=== PATIENT | male | born 1960 | race African-American/Black ===

== ENCOUNTER 2022-02-07 10:54 | Emergency (ER) | payer MEDICAID ==
[~2022-02-07] VITALS: Ht 172.7 cm; Wt 73.0 kg
[~2022-02-07 10:54] MED LIST: AMLO5TAB88 PO; ASPI-1406 PO; ATOR10TA PO; CLOP75TA15 PO; LISI20TA31 PO
[2022-02-07 11:16] VITALS: BP 137/78
[2022-02-07 12:14] LABS: CHLORIDE 98 mEq/L (98-107)
[2022-02-07 12:18] LABS: HEMATOCRIT. 36.3 % (42.0-52.0); HEMOGLOBIN. 11.8 g/dL (14.0-18.0); MEAN CORPUSCULAR HEMOGLOBIN 26.4 pg (28.0-32.0); MEAN CORPUSCULAR VOLUME 81.5 fL (80.0-94.0); MEAN PLATELET VOLUME 8.8 fl (7.4-10.4); PLATELET 199 x1000/uL (130-400); RED BLOOD CELL COUNT 4.45 mill/uL (4.7-6.1); RED CELL DISTRIBUTION WIDTH 17.6 % (11.6-14.6)
[2022-02-07 12:45] LABS: PLATELET ESTIMATE NORMAL
== END 2022-02-07 13:16 | disposition home or self-care (01) ==
LOC: ER 11:10
DX: R07.89 Other chest pain (principal); I10 Essential (primary) hypertension; E78.00 Pure hypercholesterolemia, unspecified; F41.9 Anxiety disorder, unspecified; J44.9 Chronic obstructive pulmonary disease, unspecified; Z86.73 Personal history of transient ischemic attack (TIA), and cerebral infarction without residual deficits; F17.210 Nicotine dependence, cigarettes, uncomplicated; Z71.6 Tobacco abuse counseling
CPT/HCPCS: 36415; 71045; 80053; 83880; 84484; 85025; 93005; 99285; 99406

== ENCOUNTER 2024-09-17 12:44 | Inpatient (IN) | payer MEDICAID ==
[~2024-09-17] VITALS: Ht 182.9 cm; Wt 63.1 kg
[2024-09-17 13:55] LABS: HEMATOCRIT. 21.5 % (42.0-52.0); MEAN CORPUSCULAR HEMOGLOBIN 18.9 pg (28.0-32.0); MEAN CORPUSCULAR HGB CONC 29.1 g/dL (31.0-37.0); MEAN CORPUSCULAR VOLUME 64.9 fL (80.0-94.0); MEAN PLATELET VOLUME 8.3 fl (7.4-10.4); PLATELET 128 x1000/uL (130-400); RED BLOOD CELL COUNT 3.32 mill/uL (4.7-6.1); RED CELL DISTRIBUTION WIDTH 23.1 % (11.6-14.6); WHITE BLOOD COUNT 2.1 x1000/uL (4.5-11.0)
[2024-09-17 14:01] LABS: HEMOGLOBIN. 6.3 g/dL (14.0-18.0)
[2024-09-17 14:02] LABS: DIFFERENTIAL COMMENT 1
[2024-09-17 14:11] LABS: CALCIUM 8.8 mg/dL (8.7-10.4); CARBON DIOXIDE 25 mEq/L (21-32); CHLORIDE 107 mEq/L (98-107); INR 1.1; POTASSIUM 3.6 mEq/L (3.5-5.1); PROTHROMBIN TIME 11.9 sec (9.6-11.0); SODIUM 138 mEq/L (136-145)
[2024-09-17 14:17] LABS: CREATININE 0.7 mg/dL (0.6-1.3); GLUCOSE 102 mg/dL (70-105); UREA NITROGEN BLOOD 6 mg/dL (9-23)
[2024-09-17 14:21] LABS: ETHANOL BLOOD < 10 mg/dL (<10)
[2024-09-17] MEDS ORDERED: MAGNESIUM/ALUMINUM HYDROXIDE/SIMETHICONE 30ML UDC PO PRN (14:30)
[2024-09-17] MEDS ORDERED: ONDANSETRON HCL 4MG/2ML INJ IV PRN (14:30)
[2024-09-17] MEDS ORDERED: CLONIDINE 0.1MG TABLET PO PRN (14:30)
[2024-09-17] MEDS ORDERED: DOCUSATE SODIUM 100MG CAPSULE PO PRN (14:30)
[2024-09-17] MEDS ORDERED: GUAIFENESIN 200MG/10ML SUGAR FREE UDC PO PRN (14:30)
[2024-09-17] MEDS ORDERED: NITROGLYCERIN 0.4MG TABLET SL SL PRN (14:30)
[2024-09-17] MEDS ORDERED: ACETAMINOPHEN 325MG TABLET PO PRN (14:30)
[2024-09-17] MEDS ORDERED: IPRATROPIUM/ALBUTEROL 0.5-3(2.5)MG/3ML NEB NEB PRN (14:30)
[2024-09-17] MEDS: DEXT 5%/LACTATED RINGERS 1,000 ML IV SCH (15:02)
[2024-09-17] MEDS ORDERED: PANTOPRAZOLE 80 MG in SODIUM CHLORIDE 0.9% 100 ML IV SCH (15:15)
[2024-09-17 15:16] LABS: IRON 22 ug/dL (65-175)
[2024-09-17 15:17] LABS: LDL CHOLESTEROL 34 mg/dL (5-100); TRIGLYCERIDE 52 mg/dL (0-150)
[2024-09-17 15:18] LABS: ALANINE AMINOTRANSFERASE 12 IU/L (10-49); ALBUMIN 3.5 g/dL (3.2-4.8); ASPARTATE AMINOTRANSFERASE 28 IU/L (<34); BILIRUBIN DIRECT 0.4 mg/dL (<=3.0); CHOLESTEROL 80 mg/dL (<200); HDL CHOLESTEROL 40 mg/dL (>55)
[2024-09-17 15:19] LABS: BILIRUBIN TOTAL 0.8 mg/dL (0.1-1.0); PROTEIN TOTAL 6.2 g/dL (6.0-8.3); TOTAL IRON BINDING CAPACITY 393 ug/dl (250-425)
[2024-09-17 15:20] LABS: FOLIC ACID (FOLATE) SERUM 12.71 ng/mL (>5.38); VITAMIN B12 SERUM 519 pg/mL (211-911)
[2024-09-17 15:21] LABS: T4 FREE 0.86 ng/dL (0.89-1.76); THYROID STIMULATING HORMONE 1.25 uIU/mL (0.55-4.78)
[2024-09-17 15:21] LABS: CLARITY URINE CLEAR (CLEAR); COLOR URINE YELLOW (YELLOW); GLUCOSE URINE NEGATIVE (NEGATIVE); KETONES URINE NEGATIVE (NEGATIVE); LEUKOCYTE ESTERASE URINE NEGATIVE (NEGATIVE); NITRITE URINE NEGATIVE (NEGATIVE); OCCULT BLOOD URINE NEGATIVE (NEGATIVE); PROTEIN URINE NEGATIVE (NEGATIVE); SPECIFIC GRAVITY URINE 1.038 (1.005-1.030)
[2024-09-17 15:40] LABS: HYPOCHROMASIA 3+; MICROCYTOSIS 3+; PLATELET ESTIMATE SLIGHTLY DECREASED
[2024-09-17 15:41] LABS: ANISOCYTOSIS 2+
[2024-09-17 15:42] LABS: GIANT PLATELETS 1+; TEAR DROP CELLS 1+
[2024-09-17 15:43] LABS: OVALOCYTES 1+
[2024-09-17 15:44] LABS: *AMPHETAMINES SCREEN URINE NEGATIVE (NEGATIVE)
[2024-09-17 15:45] LABS: *BARBITURATES SCREEN URINE NEGATIVE (NEGATIVE); *BENZODIAZEPINES SCREEN URINE NEGATIVE (NEGATIVE); *COCAINE SCREEN URINE NEGATIVE (NEGATIVE)
[2024-09-17 15:46] LABS: CANNABINOID URINE SCREEN NEGATIVE (NEGATIVE); ECSTASY MDMA SCREEN URINE NEGATIVE (NEGATIVE); METHADONE URINE SCREEN NEGATIVE (NEGATIVE); OPIATES URINE SCREEN NEGATIVE (NEGATIVE); PHENCYCLIDINE URINE SCREEN NEGATIVE (NEGATIVE)
[2024-09-17] MEDS: PANTOPRAZOLE 80 MG in SODIUM CHLORIDE 0.9% 100 ML IV SCH (15:59)
[2024-09-17] MEDS: FERROUS SULFATE 325MG TABLET PO SCH (17:28)
[2024-09-17] MEDS ORDERED: ZOLPIDEM TARTRATE 5MG TABLET PO PRN (21:00)
[2024-09-17] MEDS: ASCORBIC ACID 500 MG TABLET PO SCH (22:20)
[2024-09-18 05:18] LABS: CHLORIDE 107 mEq/L (98-107); POTASSIUM 3.4 mEq/L (3.5-5.1); SODIUM 139 mEq/L (136-145)
[2024-09-18 05:20] LABS: CARBON DIOXIDE 26 mEq/L (21-32)
[2024-09-18 05:21] LABS: CALCIUM 8.9 mg/dL (8.7-10.4)
[2024-09-18 05:25] LABS: CREATININE 0.6 mg/dL (0.6-1.3)
[2024-09-18 05:26] LABS: GLUCOSE 115 mg/dL (70-105); UREA NITROGEN BLOOD 5 mg/dL (9-23)
[2024-09-18 05:27] LABS: ALANINE AMINOTRANSFERASE 14 IU/L (10-49); ALBUMIN 3.5 g/dL (3.2-4.8); ASPARTATE AMINOTRANSFERASE 27 IU/L (<34)
[2024-09-18 05:28] LABS: BILIRUBIN TOTAL 3.4 mg/dL (0.1-1.0); HEMATOCRIT. 28.6 % (42.0-52.0); HEMOGLOBIN. 8.6 g/dL (14.0-18.0); MEAN CORPUSCULAR HEMOGLOBIN 21.1 pg (28.0-32.0); MEAN CORPUSCULAR HGB CONC 30.2 g/dL (31.0-37.0); MEAN CORPUSCULAR VOLUME 69.9 fL (80.0-94.0); PROTEIN TOTAL 6.5 g/dL (6.0-8.3); RED BLOOD CELL COUNT 4.09 mill/uL (4.7-6.1); RED CELL DISTRIBUTION WIDTH 24.5 % (11.6-14.6); WHITE BLOOD COUNT 5.3 x1000/uL (4.5-11.0)
[2024-09-18 07:04] LABS: DIFFERENTIAL COMMENT 1
[2024-09-18 08:46] LABS: ANISOCYTOSIS 3+; MICROCYTOSIS 2+
[2024-09-18 14:00] VITALS: BP 159/81; PULSE 65; RESP 17; TEMP 36.3068
[2024-09-18 16:00] VITALS: BP 150/71; PULSE 61; RESP 16; TEMP 35.78064; O2SAT 100
[2024-09-18] MEDS: ACETAMINOPHEN 325MG TABLET PO PRN (17:17)
[2024-09-18 20:00] VITALS: BP 115/73; PULSE 66; RESP 18; TEMP 36.16956; O2SAT 100
[2024-09-19] VITALS: BP 128/81; PULSE 71; RESP 18; TEMP 36.28068; O2SAT 95
[2024-09-19 04:00] VITALS: BP 149/78; PULSE 68; RESP 18; TEMP 36.22512; O2SAT 94
[2024-09-19 08:00] VITALS: BP 159/81; PULSE 75; RESP 18; TEMP 36.3918; O2SAT 99
[2024-09-19 12:00] VITALS: BP 131/62; PULSE 72; RESP 18; TEMP 35.94732; O2SAT 98
[2024-09-19 13:17] LABS: CHLORIDE 109 mEq/L (98-107); POTASSIUM 3.3 mEq/L (3.5-5.1); SODIUM 140 mEq/L (136-145)
[2024-09-19 13:18] LABS: CARBON DIOXIDE 28 mEq/L (21-32)
[2024-09-19 13:19] LABS: CALCIUM 9.2 mg/dL (8.7-10.4)
[2024-09-19 13:23] LABS: CREATININE 0.7 mg/dL (0.6-1.3); GLUCOSE 127 mg/dL (70-105)
[2024-09-19 13:24] LABS: UREA NITROGEN BLOOD 5 mg/dL (9-23)
[2024-09-19 13:25] LABS: ALANINE AMINOTRANSFERASE 12 IU/L (10-49); ASPARTATE AMINOTRANSFERASE 34 IU/L (<34)
[2024-09-19 13:26] LABS: BILIRUBIN TOTAL 1.8 mg/dL (0.1-1.0); PROTEIN TOTAL 7.1 g/dL (6.0-8.3)
[2024-09-19] MEDS: PANTOPRAZOLE SODIUM 40 MG/VIAL IV SCH (13:27)
[2024-09-19 13:44] LABS: HEMATOCRIT. 32.1 % (42.0-52.0); HEMOGLOBIN. 9.4 g/dL (14.0-18.0); MEAN CORPUSCULAR HEMOGLOBIN 20.3 pg (28.0-32.0); MEAN CORPUSCULAR HGB CONC 29.3 g/dL (31.0-37.0); MEAN CORPUSCULAR VOLUME 69.3 fL (80.0-94.0); RED BLOOD CELL COUNT 4.63 mill/uL (4.7-6.1); RED CELL DISTRIBUTION WIDTH 25.2 % (11.6-14.6)
[2024-09-19 14:22] LABS: DIFFERENTIAL COMMENT 1
[2024-09-19 16:00] VITALS: BP 134/75; PULSE 77; RESP 18; TEMP 36.44736; O2SAT 99
[2024-09-19 18:01] LABS: PLATELET 85 x1000/uL (130-400)
[2024-09-19 18:03] LABS: ANISOCYTOSIS 3+; HYPOCHROMASIA 2+; MICROCYTOSIS 3+; PLATELET ESTIMATE DECREASED
[2024-09-19 20:00] VITALS: BP 125/71; PULSE 70; RESP 19; TEMP 36.72516; O2SAT 100
[2024-09-19] MEDS: ATORVASTATIN CALCIUM 40MG TABLET PO SCH (20:21)
[2024-09-19] MEDS: KCL 20MEQ/100ML PREMIX 100 ML IV NR (20:59)
[2024-09-19] MEDS ORDERED: IOHEXOL-300 100 ML BOTTLE ONE (22:48)
[2024-09-20] VITALS: BP 120/75; PULSE 70; RESP 19; TEMP 36.61404; O2SAT 100
[2024-09-20 04:00] VITALS: BP 145/65; PULSE 69; RESP 19; TEMP 36.3918; O2SAT 100
[2024-09-20 08:00] VITALS: BP 119/69; PULSE 72; RESP 19; TEMP 36.28068; O2SAT 97
[2024-09-20 08:11] LABS: BASOPHILS % 1.5 % (0.0-2.0); EOSINOPHILS % 5.2 % (0.0-5.0); HEMATOCRIT. 30.8 % (42.0-52.0); HEMOGLOBIN. 9.4 g/dL (14.0-18.0); LYMPHOCYTES % 34.6 % (20.0-50.0); MEAN CORPUSCULAR HEMOGLOBIN 21.2 pg (28.0-32.0); MEAN CORPUSCULAR HGB CONC 30.4 g/dL (31.0-37.0); MEAN CORPUSCULAR VOLUME 69.8 fL (80.0-94.0); MONOCYTES % 14.7 % (2.0-8.0); RED BLOOD CELL COUNT 4.41 mill/uL (4.7-6.1); RED CELL DISTRIBUTION WIDTH 25.9 % (11.6-14.6); WHITE BLOOD COUNT 5.1 x1000/uL (4.5-11.0)
[2024-09-20 08:13] LABS: CARBON DIOXIDE 29 mEq/L (21-32); CHLORIDE 104 mEq/L (98-107); POTASSIUM 3.1 mEq/L (3.5-5.1); SODIUM 138 mEq/L (136-145)
[2024-09-20 08:14] LABS: CALCIUM 8.9 mg/dL (8.7-10.4)
[2024-09-20 08:18] LABS: CREATININE 0.6 mg/dL (0.6-1.3); GLUCOSE 108 mg/dL (70-105)
[2024-09-20 08:20] LABS: ALANINE AMINOTRANSFERASE 18 IU/L (10-49); ALBUMIN 3.5 g/dL (3.2-4.8); ASPARTATE AMINOTRANSFERASE 34 IU/L (<34)
[2024-09-20 08:21] LABS: BILIRUBIN TOTAL 1.5 mg/dL (0.1-1.0); PROTEIN TOTAL 6.6 g/dL (6.0-8.3)
[2024-09-20 08:26] LABS: DIFFERENTIAL COMMENT 1
[2024-09-20 08:28] LABS: ADD RBC MORPHOLOGY NO
[2024-09-20 08:35] LABS: UREA NITROGEN BLOOD < 5 mg/dL (9-23)
[2024-09-20] MEDS: ASPIRIN 81MG TABLET PO SCH (10:45)
[2024-09-20] MEDS: CLOPIDOGREL 75MG TABLET PO SCH (10:45)
[2024-09-20 12:00] VITALS: BP 148/75; PULSE 67; RESP 18; TEMP 36.33624; O2SAT 100
[2024-09-20] MEDS: KCL 20MEQ/100ML PREMIX 100 ML IV NR (12:18)
[2024-09-20 16:00] VITALS: BP 110/74; PULSE 77; RESP 19; TEMP 36.44736; O2SAT 97
[2024-09-20 20:00] VITALS: BP 125/74; PULSE 76; RESP 18; TEMP 36.28068; O2SAT 99
[2024-09-20] MEDS: SENNOSIDES 8.6MG TABLET PO SCH (21:00)
[2024-09-20] MEDS: DOCUSATE SODIUM 100MG CAPSULE PO SCH (21:56)
[2024-09-20] MEDS ORDERED: IOHEXOL-300 100 ML BOTTLE ONE (23:35)
[2024-09-21] VITALS: BP 144/76; PULSE 63; RESP 18; TEMP 36.50292; O2SAT 97
[2024-09-21 04:00] VITALS: BP 142/85; PULSE 69; RESP 20; TEMP 36.00288; O2SAT 100
[2024-09-21 08:00] VITALS: BP 151/81; PULSE 66; RESP 18; TEMP 36.114; O2SAT 99
[2024-09-21 12:00] VITALS: BP 146/80; PULSE 75; RESP 18; TEMP 36.00288; O2SAT 99
[2024-09-21 15:58] LABS: HEMATOCRIT. 32.2 % (42.0-52.0); HEMOGLOBIN. 9.7 g/dL (14.0-18.0); MEAN CORPUSCULAR HEMOGLOBIN 21.8 pg (28.0-32.0); MEAN CORPUSCULAR HGB CONC 30.1 g/dL (31.0-37.0); MEAN CORPUSCULAR VOLUME 72.6 fL (80.0-94.0); RED BLOOD CELL COUNT 4.44 mill/uL (4.7-6.1); RED CELL DISTRIBUTION WIDTH 25.4 % (11.6-14.6); WHITE BLOOD COUNT 5.7 x1000/uL (4.5-11.0)
[2024-09-21 16:00] VITALS: BP 143/69; PULSE 75; RESP 18; TEMP 35.8362; O2SAT 99
[2024-09-21 16:00] LABS: DIFFERENTIAL COMMENT 1
[2024-09-21 16:10] LABS: CARBON DIOXIDE 28 mEq/L (21-32); CHLORIDE 105 mEq/L (98-107); POTASSIUM 3.6 mEq/L (3.5-5.1); SODIUM 137 mEq/L (136-145)
[2024-09-21 16:11] LABS: CALCIUM 9.3 mg/dL (8.7-10.4)
[2024-09-21 16:16] LABS: CREATININE 0.7 mg/dL (0.6-1.3); GLUCOSE 138 mg/dL (70-105)
[2024-09-21 16:22] LABS: UREA NITROGEN BLOOD < 5 mg/dL (9-23)
[2024-09-21 17:04] LABS: MEAN PLATELET VOLUME 8.9 fl (7.4-10.4); PLATELET 65 x1000/uL (130-400)
[2024-09-21 17:06] LABS: ANISOCYTOSIS 2+; HYPOCHROMASIA 2+; MICROCYTOSIS 2+; NUCLEATED RED BLOOD CELLS 1 /100 WBC; PLATELET ESTIMATE DECREASED
[2024-09-21 20:00] VITALS: BP 144/62; RESP 18; TEMP 36.44736; O2SAT 99
[2024-09-22] VITALS: BP 144/62; RESP 18; TEMP 36.44736; O2SAT 99
[2024-09-22 04:00] VITALS: BP 136/68; RESP 18; TEMP 36.22512; O2SAT 99
[2024-09-22 08:00] VITALS: BP 161/87; PULSE 84; RESP 18; TEMP 36.72516; O2SAT 98
[2024-09-22 12:00] VITALS: BP 118/58; PULSE 124; RESP 19; TEMP 36.55848; O2SAT 98
[2024-09-22 16:00] VITALS: BP 133/71; PULSE 91; RESP 18; TEMP 36.50292; O2SAT 98
[2024-09-22 19:15] LABS: HEMATOCRIT. 30.8 % (42.0-52.0); HEMOGLOBIN. 9.1 g/dL (14.0-18.0); MEAN CORPUSCULAR HEMOGLOBIN 21.4 pg (28.0-32.0); MEAN CORPUSCULAR HGB CONC 29.5 g/dL (31.0-37.0); MEAN CORPUSCULAR VOLUME 72.6 fL (80.0-94.0); RED BLOOD CELL COUNT 4.25 mill/uL (4.7-6.1); RED CELL DISTRIBUTION WIDTH 26.3 % (11.6-14.6); WHITE BLOOD COUNT 8.6 x1000/uL (4.5-11.0)
[2024-09-22 19:18] LABS: CHLORIDE 104 mEq/L (98-107); POTASSIUM 3.7 mEq/L (3.5-5.1); SODIUM 137 mEq/L (136-145)
[2024-09-22 19:19] LABS: CARBON DIOXIDE 28 mEq/L (21-32)
[2024-09-22 19:21] LABS: DIFFERENTIAL COMMENT 1
[2024-09-22 19:24] LABS: CREATININE 0.7 mg/dL (0.6-1.3); GLUCOSE 134 mg/dL (70-105); UREA NITROGEN BLOOD 7 mg/dL (9-23)
[2024-09-22 20:00] VITALS: BP 137/72; PULSE 81; RESP 20; TEMP 36.61404; O2SAT 98
[2024-09-22 22:30] LABS: HYPOCHROMASIA 2+; MICROCYTOSIS 2+; PLATELET ESTIMATE DECREASED
[2024-09-22 22:31] LABS: MEAN PLATELET VOLUME 9.3 fl (7.4-10.4); OVALOCYTES 1+; PLATELET 53 x1000/uL (130-400)
[2024-09-22 22:32] LABS: ANISOCYTOSIS 2+
[2024-09-23] VITALS: BP 151/84; PULSE 89; RESP 20; TEMP 36.78072; O2SAT 100
[2024-09-23 04:00] VITALS: BP 137/80; PULSE 85; RESP 20; TEMP 36.44736; O2SAT 100
[2024-09-23 08:00] VITALS: BP 136/65; PULSE 77; RESP 18; TEMP 36.61404; O2SAT 99
[2024-09-23 11:06] LABS: HEMATOCRIT. 30.5 % (42.0-52.0); HEMOGLOBIN. 9.4 g/dL (14.0-18.0); MEAN CORPUSCULAR HEMOGLOBIN 22.6 pg (28.0-32.0); MEAN CORPUSCULAR HGB CONC 30.7 g/dL (31.0-37.0); MEAN CORPUSCULAR VOLUME 73.5 fL (80.0-94.0); RED BLOOD CELL COUNT 4.15 mill/uL (4.7-6.1); RED CELL DISTRIBUTION WIDTH 26.3 % (11.6-14.6); WHITE BLOOD COUNT 6.3 x1000/uL (4.5-11.0)
[2024-09-23 11:07] LABS: CHLORIDE 104 mEq/L (98-107); POTASSIUM 3.2 mEq/L (3.5-5.1); SODIUM 138 mEq/L (136-145)
[2024-09-23 11:08] LABS: CALCIUM 9.3 mg/dL (8.7-10.4); CARBON DIOXIDE 29 mEq/L (21-32)
[2024-09-23 11:13] LABS: CREATININE 0.7 mg/dL (0.6-1.3); GLUCOSE 155 mg/dL (70-105); UREA NITROGEN BLOOD 7 mg/dL (9-23)
[2024-09-23 11:20] LABS: DIFFERENTIAL COMMENT 1
[2024-09-23 12:00] VITALS: BP 113/54; PULSE 76; RESP 17; TEMP 36.61404; O2SAT 98
[2024-09-23 13:53] LABS: ANISOCYTOSIS 4+; MICROCYTOSIS 2+
[2024-09-23 13:55] LABS: PLATELET ESTIMATE MARKEDLY DECREASED
[2024-09-23 13:57] LABS: MEAN PLATELET VOLUME 9.2 fl (7.4-10.4)
[2024-09-23 13:59] LABS: PLATELET 48 x1000/uL (130-400)
[2024-09-23 16:00] VITALS: BP 130/70; PULSE 75; RESP 18; TEMP 36.50292; O2SAT 98
[2024-09-23 20:00] VITALS: BP 156/87; PULSE 97; RESP 18; TEMP 36.55848; O2SAT 18
[2024-09-24] VITALS: BP 142/80; PULSE 85; RESP 18; TEMP 36.61404; O2SAT 98
[2024-09-24 04:00] VITALS: BP 135/82; PULSE 79; RESP 18; TEMP 36.44736; O2SAT 98
[2024-09-24 06:19] LABS: CARBON DIOXIDE 27 mEq/L (21-32); CHLORIDE 103 mEq/L (98-107); POTASSIUM 3.6 mEq/L (3.5-5.1); SODIUM 136 mEq/L (136-145)
[2024-09-24 06:20] LABS: CALCIUM 9.1 mg/dL (8.7-10.4)
[2024-09-24 06:25] LABS: CREATININE 0.6 mg/dL (0.6-1.3); GLUCOSE 108 mg/dL (70-105); UREA NITROGEN BLOOD 6 mg/dL (9-23)
[2024-09-24 06:58] LABS: HEMATOCRIT. 29.5 % (42.0-52.0); HEMOGLOBIN. 9.2 g/dL (14.0-18.0); MEAN CORPUSCULAR HGB CONC 31.2 g/dL (31.0-37.0); MEAN CORPUSCULAR VOLUME 73.9 fL (80.0-94.0); RED CELL DISTRIBUTION WIDTH 26.3 % (11.6-14.6); WHITE BLOOD COUNT 9.4 x1000/uL (4.5-11.0)
[2024-09-24 07:02] LABS: DIFFERENTIAL COMMENT 1
[2024-09-24 08:00] VITALS: BP 137/70; PULSE 70; RESP 17; TEMP 36.61404; O2SAT 99
[2024-09-24 10:15] LABS: ANISOCYTOSIS 4+; MICROCYTOSIS 2+; OVALOCYTES 1+; PLATELET ESTIMATE DECREASED
[2024-09-24 10:21] LABS: PLATELET 51 x1000/uL (130-400)
[2024-09-24 12:00] VITALS: BP 128/68; PULSE 79; RESP 17; TEMP 36.61404; O2SAT 99
[2024-09-24] MEDS: FOLIC ACID 1MG TABLET PO SCH (12:13)
[2024-09-24] MEDS: MULTIVITAMINS,THER W-MINERALS TABLET PO SCH (12:41)
[2024-09-24] MEDS: THIAMINE HCL 100MG TABLET PO SCH (12:49)
[2024-09-24 16:00] VITALS: BP 125/59; PULSE 70; RESP 17; TEMP 36.50292; O2SAT 99
[2024-09-24 20:00] VITALS: BP 129/75; PULSE 65; RESP 18; TEMP 36.9474; O2SAT 100
[2024-09-25] VITALS: BP 146/76; PULSE 70; RESP 18; TEMP 36.61404; O2SAT 100
[2024-09-25 04:00] VITALS: BP 145/71; PULSE 76; RESP 18; TEMP 36.50292; O2SAT 100
[2024-09-25 06:36] LABS: CARBON DIOXIDE 26 mEq/L (21-32); CHLORIDE 104 mEq/L (98-107); POTASSIUM 4.7 mEq/L (3.5-5.1); SODIUM 136 mEq/L (136-145)
[2024-09-25 06:37] LABS: CALCIUM 9.4 mg/dL (8.7-10.4)
[2024-09-25 06:41] LABS: CREATININE 0.6 mg/dL (0.6-1.3)
[2024-09-25 06:42] LABS: GLUCOSE 97 mg/dL (70-105); UREA NITROGEN BLOOD 6 mg/dL (9-23)
[2024-09-25 08:00] VITALS: BP 138/62; PULSE 77; RESP 16; TEMP 36.44736; O2SAT 100
[2024-09-25 12:00] VITALS: BP 132/60; PULSE 78; RESP 18; TEMP 36.114; O2SAT 100
[2024-09-25 16:00] VITALS: BP 130/62; PULSE 77; RESP 16; TEMP 36.22512; O2SAT 100
[2024-09-25 16:02] LABS: HEMATOCRIT. 30.6 % (42.0-52.0); HEMOGLOBIN. 9.4 g/dL (14.0-18.0); MEAN CORPUSCULAR HEMOGLOBIN 23.4 pg (28.0-32.0); MEAN CORPUSCULAR HGB CONC 30.9 g/dL (31.0-37.0); MEAN CORPUSCULAR VOLUME 75.8 fL (80.0-94.0); MEAN PLATELET VOLUME 9.5 fl (7.4-10.4); PLATELET 70 x1000/uL (130-400); RED BLOOD CELL COUNT 4.04 mill/uL (4.7-6.1); WHITE BLOOD COUNT 6.3 x1000/uL (4.5-11.0)
[2024-09-25 16:22] LABS: ADD RBC MORPHOLOGY YES; DIFFERENTIAL COMMENT 1
[2024-09-25 19:32] LABS: ANISOCYTOSIS 3+; PLATELET ESTIMATE DECREASED
[2024-09-25 19:33] LABS: HYPOCHROMASIA 1+; MICROCYTOSIS 2+; OVALOCYTES 1+; TEAR DROP CELLS 1+
[2024-09-25 20:00] VITALS: BP 130/65; PULSE 74; RESP 18; TEMP 36.78072; O2SAT 100
[2024-09-26] VITALS: BP 155/74; PULSE 75; RESP 19; TEMP 37.11408; O2SAT 100
[2024-09-26 04:00] VITALS: BP 132/68; PULSE 75; RESP 18; TEMP 36.72516; O2SAT 100
[2024-09-26 08:00] VITALS: BP 128/62; PULSE 78; RESP 16; TEMP 36.61404; O2SAT 100
[2024-09-26 12:00] VITALS: BP 130/60; PULSE 77; RESP 18; TEMP 36.44736; O2SAT 100
[2024-09-26 16:00] VITALS: BP 138/66; PULSE 80; RESP 16; TEMP 36.55848; O2SAT 98
[2024-09-26 18:04] VITALS: BP 128/66; PULSE 78; TEMP 96.9; O2SAT 98
== END 2024-09-26 19:30 | DRG 45 ==
LOC: ER 12:53 → EDBEDREQ 13:58 → 5WST 21:51 → 7EST 09-18 13:20
PROVIDERS: ADMIT Internal Medicine; ATTEND Internal Medicine
PROC: 30233N1 Transfusion of Nonautologous Red Blood Cells into Peripheral Vein, Percutaneous Approach (ICD-10-PCS; principal; 2024-09-17)
DX: I63.81 Other cerebral infarction due to occlusion or stenosis of small artery (principal); J96.01 Acute respiratory failure with hypoxia; D61.818 Other pancytopenia; D62 Acute posthemorrhagic anemia; D49.1 Neoplasm of unspecified behavior of respiratory system; J44.1 Chronic obstructive pulmonary disease with (acute) exacerbation; D50.9 Iron deficiency anemia, unspecified; E80.6 Other disorders of bilirubin metabolism; R29.703 NIHSS score 3; E87.6 Hypokalemia; I10 Essential (primary) hypertension; F41.8 Other specified anxiety disorders; F41.9 Anxiety disorder, unspecified; K59.09 Other constipation; J43.9 Emphysema, unspecified; G89.29 Other chronic pain; J40 Bronchitis, not specified as acute or chronic; R47.1 Dysarthria and anarthria; R13.10 Dysphagia, unspecified; E78.5 Hyperlipidemia, unspecified; G31.9 Degenerative disease of nervous system, unspecified; K80.20 Calculus of gallbladder without cholecystitis without obstruction; Z79.82 Long term (current) use of aspirin; Z82.49 Family history of ischemic heart disease and other diseases of the circulatory system
CPT/HCPCS: 36415; 70496; 70498; 70551; 71045; 71260; 74177; 80048; 80053; 80061; 80076; 80305; 80320; 81003; 82270; 82607; 82728; 82746; 83036; 83540; 83550; 83735; 84100; 84439; 84443; 85025; 85044; 86850; 86900; 86920; 92523; 92610; 93005; 93306; 93970; 97162; 97166; 97530; 99291; J2470; J3480; J7050; P9016; Q9967; G0480

== ENCOUNTER 2024-09-26 19:40 | Inpatient (IN) | payer MEDICAID ==
[~2024-09-26] VITALS: Ht 182.9 cm; Wt 63.0 kg
[2024-09-26 19:40] VITALS: BP 111/66; PULSE 93; RESP 18; TEMP 36.418
[2024-09-26 20:00] VITALS: BP 123/74; PULSE 75; RESP 18; TEMP 36.61404; O2SAT 97
[2024-09-26] MEDS ORDERED: CLONIDINE 0.1MG TABLET PO PRN (20:45)
[2024-09-26] MEDS ORDERED: SENNOSIDES 8.6MG TABLET PO PRN (20:45)
[2024-09-26] MEDS ORDERED: MAGNESIUM/ALUMINUM HYDROXIDE/SIMETHICONE 30ML UDC PO PRN (20:45)
[2024-09-26] MEDS ORDERED: GUAIFENESIN 200MG/10ML SUGAR FREE UDC PO PRN (20:45)
[2024-09-26] MEDS ORDERED: IPRATROPIUM/ALBUTEROL 0.5-3(2.5)MG/3ML NEB HHN PRN (20:45)
[2024-09-26] MEDS ORDERED: ONDANSETRON HCL 4MG/2ML INJ IV PRN (20:45)
[2024-09-26] MEDS ORDERED: NITROGLYCERIN 0.4MG TABLET SL SL PRN (20:45)
[2024-09-26] MEDS: PANTOPRAZOLE SODIUM 40 MG/VIAL IV SCH (21:27)
[2024-09-26] MEDS: DOCUSATE SODIUM 100MG CAPSULE PO SCH (21:28)
[2024-09-26] MEDS: ASCORBIC ACID 500 MG TABLET PO SCH (21:28)
[2024-09-26] MEDS: ATORVASTATIN CALCIUM 40MG TABLET PO SCH (21:28)
[2024-09-26] MEDS: ACETAMINOPHEN 650MG/20.3ML UDC PO PRN (21:29)
[2024-09-27 08:00] VITALS: BP 123/66; PULSE 69; RESP 18; TEMP 36.83628; O2SAT 100
[2024-09-27 08:25] LABS: CARBON DIOXIDE 28 mEq/L (21-32); CHLORIDE 105 mEq/L (98-107); POTASSIUM 4.3 mEq/L (3.5-5.1); SODIUM 138 mEq/L (136-145)
[2024-09-27 08:26] LABS: CALCIUM 9.3 mg/dL (8.7-10.4)
[2024-09-27 08:30] LABS: CREATININE 0.7 mg/dL (0.6-1.3)
[2024-09-27 08:31] LABS: GLUCOSE 111 mg/dL (70-105); UREA NITROGEN BLOOD 11 mg/dL (9-23)
[2024-09-27 08:32] LABS: ALANINE AMINOTRANSFERASE 25 IU/L (10-49); ALBUMIN 3.4 g/dL (3.2-4.8)
[2024-09-27 08:33] LABS: ASPARTATE AMINOTRANSFERASE 39 IU/L (<34); BILIRUBIN TOTAL 0.6 mg/dL (0.1-1.0); PROTEIN TOTAL 6.2 g/dL (6.0-8.3)
[2024-09-27 08:35] LABS: PREALBUMIN < 5.0 mg/dl (10.0-40.0)
[2024-09-27] MEDS: MULTIVITAMINS,THER W-MINERALS TABLET PO SCH (08:51)
[2024-09-27] MEDS: FERROUS SULFATE 325MG TABLET PO SCH (08:52)
[2024-09-27] MEDS: FOLIC ACID 1MG TABLET PO SCH (08:52)
[2024-09-27] MEDS: THIAMINE HCL 100MG TABLET PO SCH (08:52)
[2024-09-27 08:55] LABS: HEMATOCRIT. 29.6 % (42.0-52.0); HEMOGLOBIN. 8.9 g/dL (14.0-18.0); MEAN CORPUSCULAR HGB CONC 30.2 g/dL (31.0-37.0); RED BLOOD CELL COUNT 3.89 mill/uL (4.7-6.1); RED CELL DISTRIBUTION WIDTH 33.2 % (11.6-14.6); WHITE BLOOD COUNT 6.1 x1000/uL (4.5-11.0)
[2024-09-27] MEDS ORDERED: CLOPIDOGREL 75MG TABLET PO SCH (09:00)
[2024-09-27] MEDS ORDERED: ASPIRIN 81MG TABLET PO SCH (09:00)
[2024-09-27 09:12] LABS: DIFFERENTIAL COMMENT 1
[2024-09-27] MEDS ORDERED: ONDANSETRON HCL 4MG TABLET PO PRN (10:30)
[2024-09-27] MEDS ORDERED: PANTOPRAZOLE 40MG DR TABLET PO SCH (10:30)
[2024-09-27 11:08] LABS: ANISOCYTOSIS 3+; MICROCYTOSIS 1+; OVALOCYTES 2+; PLATELET ESTIMATE SLIGHTLY DECREASED
[2024-09-27 15:12] LABS: MEAN PLATELET VOLUME 8.8 fl (7.4-10.4); PLATELET 118 x1000/uL (130-400)
[2024-09-27 19:55] VITALS: BP 174/85; PULSE 79; RESP 20; TEMP 36.114; O2SAT 100
[2024-09-27] MEDS: PANTOPRAZOLE 40MG DR TABLET PO SCH (21:35)
[2024-09-28 08:00] VITALS: BP 127/58; PULSE 77; RESP 18; TEMP 36.28068; O2SAT 100
[2024-09-28 20:00] VITALS: BP 127/66; PULSE 88; RESP 20; TEMP 36.05844; O2SAT 98
[2024-09-29 08:00] VITALS: BP 137/57; PULSE 84; RESP 20; TEMP 36.83628; O2SAT 99
[2024-09-29 20:00] VITALS: BP 125/60; PULSE 76; RESP 18; TEMP 36.89184; O2SAT 99
[2024-09-30 07:43] VITALS: BP 143/71; PULSE 78; RESP 20; TEMP 36.44736; O2SAT 100
[2024-09-30 20:00] VITALS: BP 132/61; PULSE 75; RESP 18; TEMP 37.00296; O2SAT 99
[2024-10-01 08:00] VITALS: BP 137/65; PULSE 75; RESP 18; TEMP 36.22512; O2SAT 100
[2024-10-01 20:00] VITALS: BP 133/70; PULSE 83; RESP 18; TEMP 37.00296; O2SAT 97
[2024-10-02 07:39] VITALS: BP 152/77; PULSE 78; RESP 18; TEMP 36.72516; O2SAT 100
[2024-10-02 10:03] VITALS: BP 119/58; PULSE 70
[2024-10-02] MEDS: ERGOCALCIFEROL 50000UNITS CAPSULE PO SCH (15:25)
[2024-10-02] MEDS: TRAMADOL 50MG TABLET PO PRN (15:27)
[2024-10-02] MEDS ORDERED: NALOXONE HCL 0.4MG/ML VIAL IV PRN (15:30)
[2024-10-02 19:36] VITALS: BP 113/65; PULSE 103; RESP 20; TEMP 36.05844; O2SAT 99
[2024-10-03 07:16] LABS: CALCIUM 9.4 mg/dL (8.7-10.4); CARBON DIOXIDE 27 mEq/L (21-32); CHLORIDE 105 mEq/L (98-107); POTASSIUM 4.2 mEq/L (3.5-5.1); SODIUM 137 mEq/L (136-145)
[2024-10-03 07:21] LABS: CREATININE 0.6 mg/dL (0.6-1.3)
[2024-10-03 07:22] LABS: GLUCOSE 116 mg/dL (70-105); UREA NITROGEN BLOOD 10 mg/dL (9-23)
[2024-10-03 07:23] LABS: ALANINE AMINOTRANSFERASE 35 IU/L (10-49); ALBUMIN 3.5 g/dL (3.2-4.8); ASPARTATE AMINOTRANSFERASE 51 IU/L (<34)
[2024-10-03 07:24] LABS: BILIRUBIN TOTAL 0.5 mg/dL (0.1-1.0); PROTEIN TOTAL 6.7 g/dL (6.0-8.3)
[2024-10-03 08:00] VITALS: BP 146/72; PULSE 91; RESP 18; TEMP 36.00288; O2SAT 99
[2024-10-03 08:40] LABS: HEMATOCRIT. 30.5 % (42.0-52.0); HEMOGLOBIN. 9.5 g/dL (14.0-18.0); MEAN CORPUSCULAR HEMOGLOBIN 24.6 pg (28.0-32.0); MEAN CORPUSCULAR HGB CONC 31.2 g/dL (31.0-37.0); MEAN CORPUSCULAR VOLUME 78.8 fL (80.0-94.0); MEAN PLATELET VOLUME 9.5 fl (7.4-10.4); PLATELET 629 x1000/uL (130-400); RED BLOOD CELL COUNT 3.86 mill/uL (4.7-6.1); RED CELL DISTRIBUTION WIDTH 36.3 % (11.6-14.6); WHITE BLOOD COUNT 9.7 x1000/uL (4.5-11.0)
[2024-10-03 09:02] LABS: DIFFERENTIAL COMMENT 1
[2024-10-03 20:00] VITALS: BP 147/65; PULSE 94; RESP 20; TEMP 37.39188; O2SAT 94
[2024-10-03 22:38] LABS: ANISOCYTOSIS 3+; HYPOCHROMASIA 1+; MICROCYTOSIS 1+; PLATELET ESTIMATE INCREASED
[2024-10-04 08:00] VITALS: BP 112/76; PULSE 68; RESP 18; TEMP 37.00296; O2SAT 96
[2024-10-04 17:24] LABS: DIFFERENTIAL COMMENT 1; HEMATOCRIT. 29.7 % (42.0-52.0); MEAN CORPUSCULAR HEMOGLOBIN 24.3 pg (28.0-32.0); MEAN CORPUSCULAR HGB CONC 30.4 g/dL (31.0-37.0); MEAN CORPUSCULAR VOLUME 79.9 fL (80.0-94.0); MEAN PLATELET VOLUME 8.6 fl (7.4-10.4); PLATELET 703 x1000/uL (130-400); RED BLOOD CELL COUNT 3.72 mill/uL (4.7-6.1); RED CELL DISTRIBUTION WIDTH 36.8 % (11.6-14.6); WHITE BLOOD COUNT 14.3 x1000/uL (4.5-11.0)
[2024-10-04 17:30] LABS: CARBON DIOXIDE 27 mEq/L (21-32); CHLORIDE 104 mEq/L (98-107); SODIUM 136 mEq/L (136-145)
[2024-10-04 17:31] LABS: CALCIUM 9.4 mg/dL (8.7-10.4)
[2024-10-04 17:33] LABS: PROTHROMBIN TIME 11.4 sec (9.6-11.0)
[2024-10-04 17:35] LABS: CREATININE 0.7 mg/dL (0.6-1.3); GLUCOSE 139 mg/dL (70-105); UREA NITROGEN BLOOD 9 mg/dL (9-23)
[2024-10-04 17:50] LABS: PLATELET ESTIMATE INCREASED
[2024-10-04 20:00] VITALS: BP 143/72; PULSE 87; RESP 19; TEMP 36.89184; O2SAT 97
[2024-10-05 07:18] LABS: HEMATOCRIT. 30.4 % (42.0-52.0); HEMOGLOBIN. 9.2 g/dL (14.0-18.0); MEAN CORPUSCULAR HGB CONC 30.3 g/dL (31.0-37.0); MEAN CORPUSCULAR VOLUME 79.4 fL (80.0-94.0); MEAN PLATELET VOLUME 8.9 fl (7.4-10.4); PLATELET 736 x1000/uL (130-400); RED BLOOD CELL COUNT 3.83 mill/uL (4.7-6.1); WHITE BLOOD COUNT 11.8 x1000/uL (4.5-11.0)
[2024-10-05 07:50] LABS: DIFFERENTIAL COMMENT 1
[2024-10-05 08:00] VITALS: BP 131/69; PULSE 85; RESP 18; TEMP 36.28068; O2SAT 97
[2024-10-05 18:02] LABS: ANISOCYTOSIS 3+; HYPOCHROMASIA 1+; MICROCYTOSIS 1+; PLATELET ESTIMATE INCREASED
[2024-10-05] MEDS: ASPIRIN 81MG TABLET PO NR (18:44)
[2024-10-05 20:00] VITALS: BP 131/84; PULSE 74; RESP 20; TEMP 36.89184; O2SAT 97
[2024-10-05 20:50] LABS: CLARITY URINE CLEAR (CLEAR); COLOR URINE YELLOW (YELLOW); GLUCOSE URINE NEGATIVE (NEGATIVE); KETONES URINE NEGATIVE (NEGATIVE); LEUKOCYTE ESTERASE URINE NEGATIVE (NEGATIVE); NITRITE URINE NEGATIVE (NEGATIVE); OCCULT BLOOD URINE NEGATIVE (NEGATIVE); PH URINE 5.5 (4.5-8.0); PROTEIN URINE NEGATIVE (NEGATIVE); SPECIFIC GRAVITY URINE 1.015 (1.005-1.030)
[2024-10-05] MEDS: CLOPIDOGREL 75MG TABLET PO NR (21:27)
[2024-10-06 07:08] LABS: HEMATOCRIT. 32.9 % (42.0-52.0); MEAN CORPUSCULAR HEMOGLOBIN 24.5 pg (28.0-32.0); MEAN CORPUSCULAR HGB CONC 30.5 g/dL (31.0-37.0); MEAN CORPUSCULAR VOLUME 80.4 fL (80.0-94.0); MEAN PLATELET VOLUME 8.5 fl (7.4-10.4); PLATELET 815 x1000/uL (130-400); RED BLOOD CELL COUNT 4.09 mill/uL (4.7-6.1); RED CELL DISTRIBUTION WIDTH 35.7 % (11.6-14.6); WHITE BLOOD COUNT 9.2 x1000/uL (4.5-11.0)
[2024-10-06 07:18] LABS: DIFFERENTIAL COMMENT 1
[2024-10-06 08:00] VITALS: BP 137/68; PULSE 89; RESP 17; TEMP 36.72516; O2SAT 100
[2024-10-06] MEDS ORDERED: FOLI-43 PO (10:22)
[2024-10-06] MEDS ORDERED: FERR-63 PO (10:22)
[2024-10-06] MEDS ORDERED: LIP40 PO (10:22)
[2024-10-06] MEDS ORDERED: FAMO-135 MT (10:22)
[2024-10-06] MEDS ORDERED: ASPI-1160 PO (10:22)
[2024-10-06] MEDS ORDERED: THIA100T72 PO (10:22)
[2024-10-06] MEDS ORDERED: MULT-624 MT (10:22)
[2024-10-06] MEDS ORDERED: CLOP-31 MT (10:23)
[2024-10-06 10:36] VITALS: BP 137/68; PULSE 68; TEMP 98.1; O2SAT 100
[2024-10-06 20:05] LABS: GIANT PLATELETS 1+; HYPOCHROMASIA 1+
[2024-10-06 20:06] LABS: ANISOCYTOSIS 3+; MICROCYTOSIS 1+
[2024-10-06 20:08] LABS: PLATELET ESTIMATE INCREASED
== END 2024-10-06 12:00 | disposition home health service (06) | DRG 45 ==
PROVIDERS: ADMIT Physical Medicine & Rehabilitation Spinal Cord Injury Medicine; ATTEND Internal Medicine
DX: I63.81 Other cerebral infarction due to occlusion or stenosis of small artery (principal); D61.818 Other pancytopenia; I69.351 Hemiplegia and hemiparesis following cerebral infarction affecting right dominant side; E55.9 Vitamin D deficiency, unspecified; D50.9 Iron deficiency anemia, unspecified; F10.20 Alcohol dependence, uncomplicated; E78.00 Pure hypercholesterolemia, unspecified; F32.A Depression, unspecified; M15.9 Polyosteoarthritis, unspecified; J44.9 Chronic obstructive pulmonary disease, unspecified; F41.9 Anxiety disorder, unspecified; R91.8 Other nonspecific abnormal finding of lung field; I10 Essential (primary) hypertension; E87.6 Hypokalemia; E80.6 Other disorders of bilirubin metabolism; G89.0 Central pain syndrome; J43.9 Emphysema, unspecified; R26.2 Difficulty in walking, not elsewhere classified; R53.81 Other malaise; K80.20 Calculus of gallbladder without cholecystitis without obstruction; K59.09 Other constipation; I69.392 Facial weakness following cerebral infarction; I69.320 Aphasia following cerebral infarction; I69.322 Dysarthria following cerebral infarction; I69.391 Dysphagia following cerebral infarction; Z82.49 Family history of ischemic heart disease and other diseases of the circulatory system; Z91.81 History of falling
CPT/HCPCS: 36415; 71046; 80048; 80053; 81003; 82306; 82962; 84134; 84145; 85025; 87077; 87186; 92523; 92610; 97110; 97116; 97162; 97166; 97530; 97535; C1893; J2470